=== PATIENT | female | born 1965 | race Hispanic/Latino ===

== ENCOUNTER 2022-11-26 14:40 | Outpatient (CLI) | payer BC, OTHER | END 2022-11-26 14:41 | disposition home or self-care (01) | LOC: CSHMAMMO 14:40 | PROVIDERS: ATTEND Obstetrics & Gynecology | DX: Z12.31 Encounter for screening mammogram for malignant neoplasm of breast (principal); Z13.820 Encounter for screening for osteoporosis | CPT/HCPCS: 77063; 77067; 77080 ==

== ENCOUNTER 2023-11-30 11:17 | Outpatient (CLI) | payer BC | END 2023-11-30 11:18 | disposition home or self-care (01) | LOC: CSHMAMMO 11:17 | PROVIDERS: ATTEND Obstetrics & Gynecology | DX: Z12.31 Encounter for screening mammogram for malignant neoplasm of breast (principal) | CPT/HCPCS: 77063; 77067 ==